=== PATIENT | female | born 1960 | race Caucasian/White ===

== ENCOUNTER 2019-09-30 12:09 | Outpatient (CLI) | payer OTHER, SELFPAY ==
--- NOTE | ~2019-09-30 | XR_ITS ---
EXAMINATION: XR knee RT min 4V DATE: 09/30/2019 12:35 INDICATION: Right knee pain TECHNIQUE: Four views of the right knee were obtained. COMPARISON: None. FINDINGS: There is mild lateral subluxation of the patella with respect to the distal femur with asso ciated narrowing of the lateral patellofemoral compartment. No fracture is identified. There is moder ate tricompartmental osteoarthritis characterized by marginal osteophytes. A small joint effusion is present. Soft tissues are unremarkable. IMPRESSION: 1. Osteoarthritis of the knee without acute osseous abnormality. Reviewed, dictated and finalized at location A.
== END 2019-09-30 12:10 | disposition home or self-care (01) ==
LOC: ANHIMG 12:17
PROVIDERS: PCP Internal Medicine; Visit Provider Physician Assistant
DX: M25.561 Pain in right knee (principal); M17.11 Unilateral primary osteoarthritis, right knee
CPT/HCPCS: 73564

== ENCOUNTER 2019-10-09 12:32 | Outpatient (CLI) | payer OTHER, SELFPAY ==
--- NOTE | ~2019-10-09 | MR_ITS ---
EXAMINATION: MR knee RT wo con DATE: 10/09/2019 13:52 INDICATION: Right knee pain. Injury. TECHNIQUE: Magnetic resonance imaging (MRI) of the right knee was performed without intravenous contr ast. Sequences included axial PD-weighted FS FSE, coronal PD-weighted FSE and PD-weighted FS FSE, sag ittal PD-weighted FSE, and sagittal T2-weighted FS FSE. COMPARISON: Right knee radiographs 09/30/2019 FINDINGS: Medial compartment: There is a radial tear of posterior horn of medial meniscus with extrusion of the body segment. There is deep partial thickness loss of tibial condyle involving the central and medial articular surface with mild subchondral edema-like marrow signal intensity. There is deep partial thickness cartilage l oss of femoral condyle involving the central, medial, and posterior articular surface with mild subch ondral edema-like marrow signal intensity. Osteophytes are noted. Lateral compartment: Lateral meniscus is normal. There is shallow partial-thickness cartilage loss of tibial condyle and f emoral condyle. Osteophytes are noted. Patellofemoral compartment: There is full-thickness cartilage loss of patellar lateral facet and median ridge with mild subchondr al edema-like marrow signal intensity. There is partial-thickness cartilage loss of medial trochlea a nd full-thickness cartilage loss of lateral trochlea. Osteophytes are noted. Ligaments and tendons: The anterior and posterior cruciate ligaments are normal. There is a partial tear of medial collatera l ligament proximally. There are changes of prior sprain of fibular collateral ligament characterized by thickening and increased signal intensity proximally. There is mild patellar tendinopathy. Fluid: There is a moderate-sized knee joint effusion. There is trace fluid in a Yang's cyst. There is mild prepatellar and superficial infrapatellar bursitis. IMPRESSION: 1. Severe chondrosis of patellofemoral compartment, moderate chondrosis of medial compartment, and mi ld chondrosis of lateral compartment. 2. Tear of medial meniscus. 3. Partial tear of medial collateral ligament. 4. Moderate-sized knee joint effusion. Reviewed, dictated and finalized at location A. IMPRESSION: 1. Severe chondrosis of patellofemoral compartment, moderate chondrosis of medi al compartment, and mild chondrosis of lateral compartment. 2. Tear of medial meniscus. 3. Partial tear of medial collateral ligament. 4. Moderate-sized knee joint effusion.
== END 2019-10-09 12:33 | disposition home or self-care (01) ==
PROVIDERS: PCP Internal Medicine; Visit Provider Physician Assistant
DX: S83.241A Other tear of medial meniscus, current injury, right knee, initial encounter (principal); S83.411A Sprain of medial collateral ligament of right knee, initial encounter; M25.461 Effusion, right knee; M94.8X6 Other specified disorders of cartilage, lower leg; X58.XXXA Exposure to other specified factors, initial encounter
CPT/HCPCS: 73721

== ENCOUNTER 2019-12-09 14:12 | Outpatient (CLI) | payer OTHER, SELFPAY ==
--- NOTE | 2019-12-09 14:30 | ECG_ITS ---
Measurements Intervals [place] Rate: 61 P: -24 CA: 120 QRS: -20 QRSD: 100 T: 10 QT: 421 QTc: 425 Interpretive Statements SINUS RHYTHM LOW QRS VOLTAGE IN PRECORDIAL LEADS DELAYED PRECORDIAL R/S TRANSITION BASELINE ARTIFACT- V3 BORDERLINE ECG Electronically Signed On 12-09-2019 14:54:12 CDT by Oseas Mandujano D.O.
== END 2019-12-09 14:13 | disposition home or self-care (01) ==
PROVIDERS: PCP Internal Medicine; Visit Provider Anesthesiology
DX: I10 Essential (primary) hypertension (principal); R94.31 Abnormal electrocardiogram [ECG] [EKG]
CPT/HCPCS: 93005

== ENCOUNTER 2019-12-20 00:57 | Outpatient (CLI) | payer OTHER, SELFPAY ==
[2019-12-20 18:41] LABS: SARS-CoV-2 RNA PCR Negative
== END 2019-12-20 00:58 | disposition home or self-care (01) ==
LOC: ANHCOVIDDT 00:57
PROVIDERS: PCP Internal Medicine; Visit Provider Orthopaedic Surgery
DX: Z01.812 Encounter for preprocedural laboratory examination (principal); Z11.59 Encounter for screening for other viral diseases
CPT/HCPCS: 87635; C9803; U0003

== ENCOUNTER 2019-12-22 01:44 | Day surgery (SDC) | payer OTHER, SELFPAY ==
[2019-12-08 17:02] VITALS: BMI 32.3
--- NOTE | 2019-12-16 10:15 | PM.IMHP ---
H&P: HPI History of Present Illness Chief complaint: Medial Meniscal Tear Right Knee Narrative: Leslye Pierson is a 59 year old female who presents with right knee pain particularly medially. For the last couple months she has noted pain with swelling in the knee she also reports mechanical symptoms. She can not twist or turn squat kneel go up and down stairs well. She has pain with ambulation and her pain is worse with activity somewhat relieved by rest. Patient has tried a course of conservative measures including physical therapy anti-inflammatories and cortisone without significant relief. X-rays show mild patellofemoral articulation osteoarthritis and moderate tibial femoral articulation osteoarthritis and marginal osteophytes as well. An MRI scan was also showning severe chondrosis of the patellofemoral compartment moderate chondrosis in the medial compartment mild chondrosis lateral compartment there is also a tear of the medial meniscus and a partial tear of the medial collateral ligament. Patient also has a moderate size knee joint effusion. There is a trace Yang cyst. At this point the patient is aware the above finding she knows she has pre-existing osteoarthritis and may not get full relief from her knee pain from knee arthroscopy are she would like to proceed. Review of Systems Review of Systems: All systems reviewed & are unremarkable except as noted in HPI and below PMFSH Social History Social History Smoking packs per day: 1 Smoking cigarettes per day: 20.0 Years smoked: 24 Smoking pack-years: 24.00 Smoking status: Former smoker Tobacco type: cigarettes Second hand tobacco smoke exposure: No Smoking end date: 03/12/04 Substance use: former Substance use type: marijuana Last use: Over 40 years ago Spiritual care concerns: No Meds Home Medications and Allergies Home Medications Medication Instructions Recorded Confirmed Type buspirone 15 mg DAILY 12/08/19 12/08/19 History doxycycline monohydrate 100 mg DAILY 12/08/19 12/08/19 History lisinopril 5 mg DAILY 12/08/19 12/08/19 History Allergies Allergy/AdvReac Type Severity Reaction Status Date / Time No Known Drug Allergies Allergy Other Verified 12/08/19 16:46 Exam Narrative: Exam Narrative: The patient is well-developed well-nourished female no acute distress. She is alert and oriented x3. Normal mood and affect. HEENT exam within normal limits. Heart regular rate rhythm. Lungs clear auscultation. Abdomen benign. Extremities showed the patient's right knee to be painful with manipulation range of motion. She has moderate knee joint effusion and tenderness on the medial joint line. There is a positive Lien exam negative [place] knee joint is otherwise stable strength is 5 5. She has pain with extremes of motion and subpatellar crepitation through the arc of motion. Neurovascularly she is intact. Hips move well negative Stinchfield negative NOHELIA. Knee joint is otherwise stable. She walks with antalgic gait because of right knee pain. Central nervous system exam within normal limits. Assessment and Plan Additional Plan By MRI exam the patient is noted have a medial meniscal tear right knee with above associated findings. The patient's discussed risks benefits limitations and alternatives of surgery in great detail with Dr. Greene she has noted proceed with a right knee arthroscopy partial medial meniscectomy proceed as indicated. Patient is scheduled to go surgery 12/22/[address] [facility] Dr. Greene the patient voiced understanding agrees above plan.
[2019-12-22] VITALS (8 sets, daily range): BP systolic 91–132; BP diastolic 52–73; PULSE 53–81; RESP 11–18; TEMP 36.2–36.8; O2SAT 97–100
--- NOTE | 2019-12-22 07:26 | WPDHPUPDATE1 ---
History and Physical Update Update Date/Time: 12/22/19 07:26 History and Physical has been reviewed, including an updated exam of the patient. There are NO changes in the patient's condition. Risks, benefits, and alternatives have been discussed and questions answered. Patient agrees to proceed with procedure.
[2019-12-22] MEDS: LACTATED RINGERS 1,000 ML 30 ML IV CONT (08:18)
[2019-12-22] MEDS: ACETAMINOPHEN 500 MG TABLET 1000 MG PO (08:18)
[2019-12-22] MEDS: KETOROLAC 15 MG/ML VIAL (*BKC) IV PUSH (08:45)
--- NOTE | 2019-12-22 09:00 | WPDANESEPPF ---
Anes - Initial Pre Proc Eval Procedure: Operation Date: 12/22/19 10:00 Proposed Procedures p Right Knee Arthroscopy, Partial Medial Meniscectomy, Proceed As Indicated - Nathan Greene MD Date/Time: 12/22/19 09:00 Surgeon: Nathan Greene MD Pre Op Diagnosis: Medial Meniscal Tear Right Knee Patient Data Age: 59 Gender: F Height: 5 ft 6 in Weight: 96.3 kg Last Vital Signs Temp 36.8 C 12/22/19 08:32 Pulse 71 12/22/19 08:32 BP 119/70 12/22/19 08:32 Pulse Ox 98 12/22/19 08:32 Allergies Allergy/AdvReac Type Severity Reaction Status Date / Time No Known Drug Allergies Allergy Other Verified 12/08/19 16:46 Home Medications Medication Instructions Recorded Confirmed Type buspirone 15 mg DAILY 12/08/19 12/22/19 History doxycycline monohydrate 100 mg DAILY 12/08/19 12/22/19 History lisinopril 5 mg DAILY 12/08/19 12/22/19 History Patient hx anesthesia problems: none Family hx anesthesia problems: none PMF Past Medical History Medical History (Updated 12/22/19 @ 09:02 by Luiz Alfaro MD) HTN (hypertension) Obesity Pre-diabetes Social History Social History Smoking packs per day: 1 Smoking cigarettes per day: 20.0 Years smoked: 24 Smoking pack-years: 24.00 Smoking status: Former smoker Tobacco type: cigarettes Second hand tobacco smoke exposure: No Smoking end date: 03/12/04 Substance use: former Substance use type: marijuana Last use: Over 40 years ago Living arrangements: alone Spiritual care concerns: No Anes - Eval Final PreProcedure Day of Procedure 12/22/19 09:00 Patient weight: obese Heart: regular rate and rhythm Lungs: clear to auscultation Airway: Mallampati scale class II Neurological: alert and oriented Last oral intake: >/= 8 hours ASA classification: III Emergent: no Anesthetic plan: proceed Anesthesia type and monitoring: general LMA and standard monitoring Informed Consent: The patient's anesthetic plan and its attendant risks and benefits were discussed with the patient/family/POA. Questions were solicited and answers provided to the satisfaction of the patient/family/POA.
[2019-12-22] MEDS: ceFAZolin 2 GM/D5W 50 ML 2 GM/50 ML BAG IVPB (09:20)
[2019-12-22] MEDS: LIDO 1%/EPINEPHRINE 1:100,000 20 ML VIAL INFILTRATE (09:43)
--- NOTE | 2019-12-22 09:57 | P.OP_ITS ---
Procedure Note - Detailed Date of procedure: 12/22/19 Pre-op diagnosis: Medial Meniscal Tear Right Knee Procedure performed: [Right] knee arthroscopy with partial meniscetomy Debridement plica Description of procedure: Patient brought to the operating room and anesthetic was administered. The knee was steriley prepped and drapped in the usual manner. Standard portals were used. Superior medial portal was used for the outflow cannula, inferior lateral portal was used for the scope, inferior medial portal was used for the instruments. Arthroscopy was performed, the patellar femoral joint showed degenerative changes. The medial compartment showed a complex t ear. The lateral compartment showed fraying. The ACL was intact. Using baskets and oren the meniscal tear was trimmed back to a stable base so the nothing further could be pulled into the joint. Any loose or delaminated fragments were gently trimmed to a stable base. At this point the instruments were withdrawn, sutures placed and patient left the operating room in satisfactory condition. A large plica was seen and debrided. Anesthesia: GETA Surgeon: Nathan Greene MD Estimated blood loss (mL): 20 Drains: No Packing: No Pathology: none sent Complications: No immediate complications Condition: stable Disposition: PACU
[2019-12-22] MEDS: ONDANSETRON INJ 4 MG/2 ML VIAL IV PUSH (10:50)
== END 2019-12-22 11:43 | disposition home or self-care (01) ==
PROVIDERS: PCP Internal Medicine; Visit Provider Orthopaedic Surgery
PROC: (CPT 29870; principal; 2019-12-22 10:00)
DX: M23.331 Other meniscus derangements, other medial meniscus, right knee (principal); M17.11 Unilateral primary osteoarthritis, right knee; I10 Essential (primary) hypertension; R73.03 Prediabetes; E66.9 Obesity, unspecified; Z68.34 Body mass index [BMI] 34.0-34.9, adult; Z87.891 Personal history of nicotine dependence
CPT/HCPCS: 29881; A9270; J0690; J1100; J1885; J2250; J2405; J2704; J3010; J7120

== ENCOUNTER 2020-11-29 14:10 | Outpatient (CLI) | payer OTHER, SELFPAY ==
--- NOTE | ~2020-11-29 | MM_ITS ---
EXAMINATION: MM screening ravindra BI w barrera HISTORY: Screening mammogram TECHNIQUE: Craniocaudal and mediolateral oblique 3-D tomosynthesis images were obtained and synthetic 2-D images were generated. CAD analysis was submitted and interpreted. COMPARISON: , 08/17/2015 bilateral digital screening mammogram examinations BREAST PARENCHYMAL COMPOSITION: The breasts are almost entirely fatty. FINDINGS: Bilateral relatively stable benign appearing ring circumscribed upper outer quadrant and le ft lower quadrant opacities with radiolucent hilus, most consistent with intramammary lymph nodes. T here is no evidence of suspicious mass, calcification, or architectural distortion to suggest maligna ncy in either breast. There has been no suspicious interval change. IMPRESSION: 1. No mammographic evidence of malignancy. 2. Recommend routine screening mammography in one year. BI-RADS Category 2: Benign finding(s). Reviewed, dictated and finalized at location A.
== END 2020-11-29 14:11 | disposition home or self-care (01) ==
LOC: ANHIMG 14:13
PROVIDERS: PCP Internal Medicine; Visit Provider Physician Assistant
DX: Z12.31 Encounter for screening mammogram for malignant neoplasm of breast (principal)
CPT/HCPCS: 77063; 77067

== ENCOUNTER 2023-11-24 14:51 | Outpatient (CLI) | payer OTHER, SELFPAY ==
--- NOTE | ~2023-11-24 | MM_ITS ---
EXAMINATION: MM screening ravindra BI w barrera HISTORY: Screening TECHNIQUE: Craniocaudal and mediolateral oblique 3-D tomosynthesis images were obtained and synthetic 2-D images were generated. CAD analysis was submitted and interpreted. COMPARISON: Comparison to multiple prior studies sequentially, with oldest reviewed study dated 08/16. BREAST PARENCHYMAL COMPOSITION: Not dense: There are scattered areas of fibroglandular density. FINDINGS: There is an enlarging mass in the upper outer quadrant of the right breast. The left breast is stable without evidence for malignancy. IMPRESSION: 1. Enlarging right breast mass. 2. Additional mammographic views and possible breast ultrasound are recommended. BI-RADS Category 0: Incomplete: Needs additional imaging evaluation. Reviewed, dictated and finalized at location B. IMPRESSION: 1. Enlarging right breast mass. 2. Additional mammographic views and possible breast ultrasound are recommended . BI-RADS Category 0: Incomplete: Needs additional imaging evaluation.
== END 2023-11-24 14:52 | disposition home or self-care (01) ==
LOC: ANHIMG 14:55
PROVIDERS: PCP Internal Medicine; Visit Provider Physician Assistant
DX: Z12.31 Encounter for screening mammogram for malignant neoplasm of breast (principal); R92.8 Other abnormal and inconclusive findings on diagnostic imaging of breast
CPT/HCPCS: 77063; 77067

== ENCOUNTER 2023-12-18 10:46 | Outpatient (CLI) | payer OTHER, SELFPAY ==
--- NOTE | ~2023-12-18 | MMUS_ITS ---
EXAMINATION: MM diagnostic ravindra RT w barrera, US breast RT limited HISTORY: Enlarging masses in the right breast TECHNIQUE: Additional 3-D tomosynthesis images of the right breast were performed and synthetic 2-D i mages were generated. CAD analysis was submitted and interpreted. High resolution Limited right breas t ultrasound was performed. COMPARISON: Comparison to multiple prior studies sequentially, with oldest reviewed study dated 08/16. BREAST PARENCHYMAL COMPOSITION: Not dense: There are scattered areas of fibroglandular density. FINDINGS: MAMMOGRAPHIC FINDINGS: There are multiple masses in the upper outer quadrant of the right breast with the largest containing circumscribed lobulated margins. There are no suspicious calcifications. No architectural distortion . ULTRASOUND: Limited right breast ultrasound: There are multiple intramammary lymph nodes of the right breast at 9 , 10:00 and 11:30 positions, largest at 10:00, 4.5 cm from the nipple measuring 8 mm, corresponding t o the largest mass seen on mammography. There are no suspicious masses to suggest malignancy. IMPRESSION: 1. No evidence for malignancy in the right breast. Benign findings. 2. Routine yearly screening mammogram and regular clinical breast examination are recommended. BI-RADS Category 2: Benign finding(s). Reviewed, dictated and finalized at location B. IMPRESSION: 1. No evidence for malignancy in the right breast. Benign findings. 2. Routine yearly screening mammogram and regular clinical breast examination a re recommended. BI-RADS Category 2: Benign finding(s).
== END 2023-12-18 10:47 | disposition home or self-care (01) ==
PROVIDERS: PCP Internal Medicine; Visit Provider Physician Assistant
DX: R92.8 Other abnormal and inconclusive findings on diagnostic imaging of breast (principal)
CPT/HCPCS: 76642; 77061; 77065; G0279

== ENCOUNTER 2024-05-28 12:15 | Outpatient (CLI) | payer OTHER, SELFPAY ==
--- NOTE | ~2024-05-28 | XR_ITS ---
Right Knee Technique: AP, lateral, and sunrise views were obtained. Clinical History: Pain Findings: No fracture or dislocation is seen. Osseous alignment is anatomic. Moderate tricompartmenta l degenerative change present.. Soft tissues are unremarkable. No joint effusion is seen. Impression: Moderate tricompartmental degenerative change. Reviewed, dictated and finalized at location . CONTROL ANALYST Impression: Moderate tricompartmental degenerative change.
--- NOTE | ~2024-05-28 | XR_ITS ---
Lumbosacral Spine: AP and lateral views Clinical History: Pain Findings: The normal lordotic curve is maintained. No fracture seen. There is 5 mm anterolisthesis of L4 over L5. There is 5 mm anterolisthesis of L5 over S1. There is severe degenerative disc narrowing at L5-S1. There is moderate to advanced facet arthritis from L3 through S1.. The sacroiliac joints are normally outlined. Impression: Moderate to advanced degenerative spondylosis, especially the lower lumbar spine, as detailed above. 5 mm anterolisthesis of L4 over L5. 5 mm anterolisthesis of L5 over S1. Reviewed, dictated and finalized at location M. CAR BRACER Impression: Moderate to advanced degenerative spondylosis, especially the lower lumbar spin e, as detailed above. 5 mm anterolisthesis of L4 over L5. 5 mm anterolisthesis of L5 over S1.
--- NOTE | ~2024-05-28 | XR_ITS ---
Left Knee Technique: AP, lateral, and sunrise views were obtained. Clinical History: Pain Findings: No fracture or dislocation is seen. Osseous alignment is anatomic. There is moderate tricom partmental degenerative change. Probable small loose bodies at the posterior aspect of the joint.. No joint effusion is seen. Impression: Moderate tricompartmental degenerative change with probable loose bodies at the posterior aspect of t he joint. Reviewed, dictated and finalized at location M. ICAL FIRST ASSISTANT Impression: Moderate tricompartmental degenerative change with probable loose bodies at the posterior aspect of the joint.
== END 2024-05-28 12:16 | disposition home or self-care (01) ==
PROVIDERS: PCP Internal Medicine; Visit Provider Physician Assistant
DX: M47.896 Other spondylosis, lumbar region (principal); M17.0 Bilateral primary osteoarthritis of knee
CPT/HCPCS: 72100; 73562

== ENCOUNTER 2024-11-09 14:17 | Emergency (ER) | payer OTHER, SELFPAY ==
--- NOTE | 2024-11-09 14:26 | ED_ITS ---
HPI - URI/Sore Throat General Chief Complaint: Upper Respiratory Infection Stated Complaint: Sore Throat/Headache Time Seen by Provider: 11/09/24 14:26 Source: patient, RN notes reviewed and old records reviewed Mode of arrival: ambulatory Limitations: no limitations History of Present Illness HPI Narrative: 64-year-old female presents to the [facility] with complaints of a burning throat. Patient states that it started after she ate some spicy crackers with jalapeno since she is. States that she also developed a headache. Took some Tums last night denies any relief. Patient denies any chest pain, shortness of breath just reports the burning throat. Symptoms since yesterday Related Data Home Medications ?Medication ?Instructions ?Recorded ?Confirmed ?Last Taken ?Type buspirone 15 mg tablet 15 mg DAILY 12/08/19 12/22/19 12/21/19 21:00 History lisinopril 10 mg tablet 5 mg DAILY 12/08/19 12/22/19 12/21/19 21:00 History Allergies Allergy/AdvReac Type Severity Reaction Status Date / Time No Known Drug Allergies Allergy Other Verified 11/09/24 14:18 Review of Systems Review of Systems: All systems reviewed & are unremarkable except as noted in HPI and below Constitutional: Constitutional: Reports no additional constitutional complaints ENT: Reports as per HPI Cardiovascular: Cardiovascular: Reports no additional cardiovascular complaints, Denies chest pain and Denies dyspnea Respiratory: Respiratory: Reports no additional respiratory complaints, Denies chest congestion, Denies cough and Denies dyspnea Musculoskeletal: Musculoskeletal: Reports no additional musculoskeletal complaints Integumentary/Breasts: Skin/Breast: Reports system reviewed and no additional complaints, except as docu PMFSH Past Medical History Medical History Pre-diabetes HTN (hypertension) Obesity Social History Social History Smoking packs per day: 1 Smoking cigarettes per day: 20.0 Years smoked: 24 Smoking pack-years: 24.00 Smoking status: Former smoker Tobacco type: cigarettes Second hand tobacco smoke exposure: No Smoking end date: 03/12/04 Substance use: former Substance use type: marijuana Last use: Over 40 years ago Living arrangements: alone Spiritual care concerns: No Comments At the time of my signature, I reviewed and agree with the nursing past medical, surgical, social, and family history. There is no relevant family history pertinent to the patient complaint. Exam Const: General: cooperative, healthy appearing, comfortable, no acute distress , well developed, alert and well nourished Nutritional Appearance: well nourished Orientation/consciousness: patient oriented x3 Limitations: no limitations HENMT: Head: normal to inspection Ears: hearing grossly normal bilaterally, external ears normal, EAC's normal, mastoids normal and no periauricular adenopathy Mouth: Yes Normal oral and palatal mucosa present, Yes lip normal, Yes tongue normal and Yes moist mucous membranes Throat: posterior oropharynx normal, uvula midline and no uvular edema Eyes: General: appearance normal, both eyes and all related structures Alignment and Position: alignment normal Neck: Neck: normal visual inspection, full ROM, no lymphadenopathy and no meningeal signs Chest: Chest palpation & inspection: normal inspection of the chest Resp: Effort & Inspection: normal respiratory effort and able to speak in complete sentences Auscultation: clear to auscultation bilaterally, no crackles, no rales, no rhonchi and no wheezes Cardio: Rate: regular rate Skin: General skin exam: normal color and no rashes or lesions noted Neuro: General: patient oriented x3, gait normal, moves all extremities and no meningeal signs Cognition (Neuro): normal cognition Speech: normal speech Gait exam (Neuro): Normal gait present Extrem: General: normal to inspection, full ROM, capillary refill normal and normal gait Psych: Appearance: grossly normal and well kempt Mental Status: mental status grossly normal Speech and movement: Normal speech and movement present and Clear speech present Affect: normal affect Attitude: cooperative Course Course Level of Care: Express Care Visit Vital Signs Vital signs: Vital Signs Temperature 97.5 F L 11/09/24 14:30 Pulse Rate 69 11/09/24 14:30 Respiratory Rate 16 11/09/24 14:30 Blood Pressure 182/92 H 11/09/24 14:30 Pulse Oximetry 100 11/09/24 14:30 Oxygen Delivery Room Air 11/09/24 14:30 Temperature 97.5 F L 11/09/24 14:30 Pulse Rate 69 11/09/24 14:30 Respiratory Rate 16 11/09/24 14:30 Blood Pressure 182/92 H 11/09/24 14:30 Pulse Oximetry 100 11/09/24 14:30 Oxygen Delivery Room Air 11/09/24 14:30 Reviewed MDM - URI/Sore Throat MDM Narrative Medical decision making narrative: Patient sitting in exam room. Patient is nontoxic, vitals are stable except blood pressure is elevated. Patient has not taken her blood pressure medications in several days. Patient presents with a ?burning throat ? after eating spicy crackers, jalapeno since she has yesterday. Patient is concerned that she might of contracted COVID. Flu, COVID and strep were all negative Patient appropriate for outpatient treatment with close follow-up Discharge instructions reviewed with patient, as well as provided in writing per nursing staff. The instructions also include specific and strict return/GO TO THE ER as well as f/u information. All questions have been answered, and the patient deny any further questions with discharge and discharge plan. Some parts of this dictation were generated by voice recognition software and may contain typographical and/or grammatical inaccuracies. Differential Diagnosis Differential diagnosis: Likely upper respiratory infection, otitis media, sinusitis, viral infection, bronchitis, influenza and pharyngitis Lab Data Labs: Lab Results 11/09/24 Range/Units 14:44 POC Influenza A Ag Negative (Negative) POC Influenza B Ag Negative (Negative) POC SARS CoV-2 Ag Negative (Negative) POC Grp A Strep Screen Negative (Negative) Reviewed Critical Care Time Critical Care Time Critical Care Time: No Discharge Plan Discharge Clinical Impression: Acid reflux Qualifiers: Esophagitis presence: esophagitis presence not specified Qualified Code(s): K21.9 - Gastro-esophageal reflux disease without esophagitis Patient Disposition: Home Condition: Stable Instructions: Antibiotic Form, Diet for Stomach Ulcers and Gastritis (ED), GERD (Gastroesophageal Reflux Disease) (DC) Additional Instructions: Eating sitter very simple. Nothing fried, greasy, spicy or highly processed. Take Pepcid every morning Today your blood pressure was 182/92. Please follow-up with your primary care provider within the next 2 weeks to have this rechecked. Be sure to take her lisinopril every day at the same time. For new or worsening symptoms please go directly to the nearest emergency room Patient Language: Uzbek Prescriptions: No Action buspirone 15 mg tablet 15 mg DAILY lisinopril 10 mg tablet 5 mg DAILY Follow-up/Referrals: Joseph,MD Milo [Primary Care Provider] - 1 Week ([facility] follow up blood pressure check 182/92) Time of Disposition: 14:46
[2024-11-09 14:30] VITALS: BP 182/92; PULSE 69; RESP 16; TEMP 36.4; O2SAT 100
[2024-11-09 14:46] LABS: EDCOVIDSCREEN Negative (Negative); EDINFLUASCREEN Negative (Negative); EDINFLUBSCREEN Negative (Negative)
[2024-11-09 14:49] LABS: EDSTREPNEGPOS1 Negative (Negative)
== END 2024-11-09 14:50 | disposition home or self-care (01) ==
PROVIDERS: Emergency Provider Nurse Practitioner; PCP Internal Medicine
DX: K21.9 Gastro-esophageal reflux disease without esophagitis (principal); Z20.822 Contact with and (suspected) exposure to COVID-19; Z87.891 Personal history of nicotine dependence; I10 Essential (primary) hypertension; R73.03 Prediabetes; E66.9 Obesity, unspecified
CPT/HCPCS: 87081; 87426; 87804; 87880; 99213; G0463

== ENCOUNTER 2024-11-29 15:32 | Outpatient (CLI) | payer OTHER, SELFPAY ==
--- NOTE | ~2024-11-29 | MM_ITS ---
EXAMINATION: MM screening [facility] BI w barrera HISTORY: Screening mammogram TECHNIQUE: Craniocaudal and mediolateral oblique 3-D tomosynthesis images were obtained and synthetic 2-D images were generated. CAD analysis was submitted and interpreted. COMPARISON: 11/24/2023, 11/29/2020 BREAST PARENCHYMAL COMPOSITION:Not Dense. The breasts are almost entirely fatty FINDINGS: Stable bilateral intramammary lymph nodes. No suspicious mass, calcification, or architectu ral distortion are identified in either breast to suggest malignancy. There has been no suspicious in terval change. IMPRESSION: No mammographic evidence of malignancy. Recommend routine screening mammography in one year. BI-RADS Category 2: Benign finding(s). Reviewed, dictated and finalized at location .
== END 2024-11-29 15:33 | disposition home or self-care (01) ==
PROVIDERS: PCP Internal Medicine; Visit Provider Physician Assistant
DX: Z12.31 Encounter for screening mammogram for malignant neoplasm of breast (principal)
CPT/HCPCS: 77063; 77067

== ENCOUNTER 2025-03-30 15:30 | Outpatient (RCR) | payer OTHER, SELFPAY ==
--- NOTE | 2025-02-02 15:59 | OPREHPOC ---
Outpatient Therapy Plan of Care This is a Multidisciplinary Plan of Care that may contain components documented by all disciplines (PT, OT, and ST.) PT Problem 1 PT Problem #1 Knowledge Deficit PT Goal 1 Goal / Goal Update 1* independent with HEP 2* demonstrate correct body mechanics with lifting from floor and simulated job tasks of cleaning homes Target Visit 8 PT Problem 2 PT Problem #2 Pain PT Goal 1 Goal / Goal Update 1* pt report pain rating at worst of 4/10 2* radicular pain into R LE to mid thigh at worst PT Problem 3 PT Problem #3 Impaired Strength PT Goal 1 Goal / Goal Update 1*increase strength of trunk and hip abduction and extension to 4+/5 to improve stability to spine single leg standing x 10 seconds with good stability 2* R 3* L Target Visit 8
--- NOTE | 2025-02-02 15:59 | PTOPEVAL1 ---
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 Assessment PT Clinical Summary Leslye has the diagnosis of back pain. She reports arthritis in her back and bilateral knees. Gradual increase in pain, with pain intermittent into R LE to knee. Back index self rating of 24% limitation in activity level. 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 With the evaluation: poor standing posture of trunk and hips; pain is increased with supine bridge; good flexibility of hips, except extension 0' and slight tightness of piriformis bilateral; weakness of trunk and hips. Skilled PT services are indicated for modalities to decrease pain; therapeutic exercises to strengthen trunk and hips with education for HEP, body mechanics and posture with doing her job of cleaning home. Plan of Care Interventions Electrical Stimulation,Hot Pack/Cold Pack,Manual Therapy,Mechanical Traction,Neuro Re-education, Patient/Caregiver Education,Therapeutic Activities ,Therapeutic Exercise,Ultrasound,Other Other Interventions taping PT Services Indicated Yes Treatment Frequency and 1-2x/wk for 8 visits Duration These treatments will address the objective and functional deficits as defined above. The patient will be advanced safely and appropriately in order for the patient to progress towards his/her prior level of function. Additional exercises will be introduced and as well as a comprehensive home exercise program upon discharge, if needed, ?to ensure carryover of functional gains achieved in the clinic. This treatment plan has been reviewed and agreement upon by the patient.
--- NOTE | 2025-03-30 16:12 | PTOPDC ---
Assessment and note entered by Pema Perales, PT Assessment Status Discharge ICD-10 Condition Codes (PT) Pain in low back M54.50 Onset about 1 year ago Subjective Information PT has helped- pain was less with standing to do a islam dinner; the exercises and stretching are helping; have an MRI scheduled; have been able to mow the yard with self propelled mower; Reported Pain Level Pain Score 1: Self Report Additional Pain Score Comments pain range in the past week 0-5/10; stiff and hurts, middle of low back and into R side- trunk and waist area; radicular intermittent R LE to foot increase pain: when wake up in morning, more activity- mow yard decrease pain: change positions, stretch, tylenol PRN have not been using heat or ice at home got a new mattress, do not think it has really made a difference Assessment PT Clinical Summary Leslye has received 8 PT sessions. Today's assessment compared to initial evaluation: pain range from 0-7/10 to 0-5/10; continues to have intermittent, radicular pain into R LE to knee and now to ankle and foot at times; increase strength of bilateral hip extension and abduction , and single leg standing time; self assessment with back index rating same at 24% limitation; education for HEP, body mechanics with cleaning homes, pain management of activity/rest balance. The goals were partially met. Discharge PT services. She is to continue with her HEP and body mechanics monitoring. Plan of Care PT Services Indicated No
--- NOTE | 2025-03-30 16:12 | OPREHPOC ---
Outpatient Therapy Plan of Care This is a Multidisciplinary Plan of Care that may contain components documented by all disciplines (PT, OT, and ST.) PT Problem 1 PT Problem #1 Knowledge Deficit PT Goal 1 Goal / Goal Update 1* independent with HEP 2* demonstrate correct body mechanics with lifting from floor and simulated job tasks of cleaning homes 03-30-25 d/c goals met Target Visit 8 Progress Met PT Problem 2 PT Problem #2 Pain PT Goal 1 Goal / Goal Update 1* pt report pain rating at worst of 4/10 2* radicular pain into R LE to mid thigh at worst 03-30-25 d/c goals not met; #1 improved to 5/10 Progress Partially Met PT Problem 3 PT Problem #3 Impaired Strength PT Goal 1 Goal / Goal Update 1*increase strength of trunk and hip abduction and extension to 4+/5 to improve stability to spine single leg standing x 10 seconds with good stability 2* R 3* L 03-30-25 d/c goals 2,3 met: #1 partially met, for hip abduction strength Target Visit 8 Progress Partially Met
== END 2025-03-31 08:20 | disposition home or self-care (01) ==
LOC: ANHPT 15:30
PROVIDERS: PCP Internal Medicine; Visit Provider Physician Assistant
DX: M54.50 Low back pain, unspecified (principal)
CPT/HCPCS: 97014; 97110; 97140; 97161; 97530; G0283

== ENCOUNTER 2025-04-06 09:44 | Outpatient (CLI) | payer OTHER, SELFPAY ==
--- NOTE | ~2025-04-06 | MR_ITS ---
EXAMINATION: MR lumbar spine wo con DATE: 04/06/2025 10:24 INDICATION: Lumbar radiculopathy TECHNIQUE: Magnetic resonance imaging (MRI) of the lumbar spine was performed without intravenous contrast. Sequences included sagittal T2-weighted FSE, sagittal T2-weighted FS FSE, sagittal T1-weighted FSE, and axial T2-weighted FSE. COMPARISON: None FINDINGS: 12 degrees thoracolumbar levoscoliosis. 3 mm anterolisthesis L4 on L5. 2 mm retrolisthesis L5 on S1. Vertebral body heights are normal. Severe disc height loss with associated fibrofatty degenerative endplate changes at L5-S1. Mild disc height loss at L1-L2, L3-L4 and L4-L5 with mild fibrovascular degenerative endplate changes along the inferior endplate of L2. Marrow signal is otherwise normal. The conus medullaris terminates at L1. There is normal signal in the caudal spinal cord. Paravertebral soft tissues are unremarkable. The following disc levels are specifically discussed: T12-L1: Disc is minimally bulging. There is mild bilateral facet joint osteoarthritis. There is no neural foraminal stenosis. There is no central canal stenosis. L1-L2: Disc is bulging. There is mild left facet joint osteoarthritis. There is mild left neural foraminal stenosis. There is mild central canal stenosis. L2-L3: Disc is bulging. There is mild left and mild to moderate right facet joint osteoarthritis. There is mild bilateral neural foraminal stenosis. There is mild central canal stenosis. L3-L4: Disc is bulging. There is mild bilateral facet joint osteoarthritis. There is mild to moderate bilateral neural foraminal stenosis. There is mild central canal stenosis. L4-L5: The disc does not extend beyond the more posterior L5 endplate margin. There is hypertrophy of the ligamentum flavum. There is severe bilateral facet joint osteoarthritis. 7 x 3 x 8 mm synovial cyst arising from the right facet joint which contributes to narrowing of the right lateral recess. There is mild bilateral neural foraminal stenosis. There is moderate central canal stenosis as well as moderate narrowing of the left and right lateral recesses. L5-S1: Small posterior disc osteophyte complex. There is moderate bilateral facet joint osteoarthritis. There is mild bilateral neural foraminal stenosis. There is mild central canal stenosis. IMPRESSION: 1. Severe lumbosacral and mild lumbar spondylosis most notable for severe bilateral facet osteoarthritis at L4-L5 with associated 3 mm anterolisthesis of L4 on L5 and moderate stenosis of the central canal and left and right lateral recesses. Reviewed, dictated and finalized at location A. IMPRESSION: 1. Severe lumbosacral and mild lumbar spondylosis most notable for severe bilat eral facet osteoarthritis at L4-L5 with associated 3 mm anterolisthesis of L4 o n L5 and moderate stenosis of the central canal and left and right lateral rece sses.
== END 2025-04-06 09:45 | disposition home or self-care (01) ==
PROVIDERS: PCP Internal Medicine; Visit Provider Physician Assistant
DX: M47.26 Other spondylosis with radiculopathy, lumbar region (principal)
CPT/HCPCS: 72148